=== PATIENT | female | born 1985 | race Caucasian/White ===

== ENCOUNTER 2017-04-08 12:56 | Emergency (ER) | payer OTHER ==
[~2017-04-08] VITALS: Ht 170.2 cm; Wt 94.8 kg
[~2017-04-08 12:56] MED LIST: IBUPROFEN 800800 MG PO; NORCO 5-325 TA1 EACH PO; NORFLEX100 MG PO; SERTRALINE HCL50 MG PO; SYNTHROID; XANAX 0.5 MG0.5 MG PO; ZOLOFT
[2017-04-08] MEDS ORDERED: EFFEXOR XR75 MG PO (13:12)
[2017-04-08] MEDS ORDERED: CLONAZEPAM 0.50.5 M1 PO (13:12)
[2017-04-08] MEDS ORDERED: CLEOCIN HCL150 MG PO (13:13)
[2017-04-08 14:33] LABS: ABSOLUTE BASOPHILS 0.1 thou/uL (0.0-0.2); ABSOLUTE EOSINOPHILS 0.3 thou/uL (0.0-0.7); ABSOLUTE LYMPHOCYTES 2.6 thou/uL (0.8-5.3); ABSOLUTE MONOCYTES 1.3 thou/uL (0.0-1.2); ABSOLUTE NEUTROPHILS 8.2 thou/uL (1.6-8.1); BASOPHILS 0.9 %; EOSINOPHILS 2.1 %; HEMATOCRIT 41.9 % (37.0-47.0); HEMOGLOBIN 14.4 gm/dL (12.0-15.0); LYMPHOCYTES 20.8 %; MCH 30.4 pg (26.0-34.0); MCHC 34.3 g/dL (28.0-37.0); MCV 88.7 fL (80.0-100.0); MONOCYTES 10.4 %; MPV 7.1 fl. (7.2-11.1); NUCLEATED RBCS 0 /100WBC; PLATELET COUNT* 384 thou/uL (150-400); POLYS 65.8 %; RBC 4.72 mil/uL (4.20-5.00); RDW-CV 12.9 % (10.5-14.5); WBC 12.5 thou/uL (4.0-11.0)
[2017-04-08 14:38] LABS: CALCIUM 9.3 mg/dL (8.5-10.1); CREATININE 0.6 mg/dL (0.6-1.3); POTASSIUM 4.1 mmol/L (3.5-5.1)
[2017-04-08 14:43] LABS: TOTAL BILIRUBIN 0.6 mg/dL (<0.1-1.0); TOTAL PROTEIN 8.6 g/dL (6.4-8.2)
[2017-04-08 17:25] VITALS: BP 125/75
== END 2017-04-08 17:32 | disposition short-term general hospital (02) ==
LOC: M.ERS 12:56
PROVIDERS: Physician Assistant
DX: K11.20 Sialoadenitis, unspecified (principal); R25.2 Cramp and spasm; F41.9 Anxiety disorder, unspecified; E03.9 Hypothyroidism, unspecified; E28.2 Polycystic ovarian syndrome; F17.210 Nicotine dependence, cigarettes, uncomplicated; Z88.0 Allergy status to penicillin

== ENCOUNTER 2019-12-28 18:34 | Emergency (ER) | payer OTHER ==
[~2019-12-28] VITALS: Ht 167.6 cm; Wt 90.7 kg
[~2019-12-28 18:34] MED LIST changes: +CLEOCIN HCL150 MG PO; +CLONAZEPAM 0.50.5 M1 PO; +EFFEXOR XR75 MG PO
[2019-12-28] MEDS ORDERED: CABERGOLINE 0.0.5 M1 PO (18:53)
[2019-12-28] MEDS ORDERED: [UNRECOGNIZED DRUG - OTHER] SUBQ (18:54)
[2019-12-28] MEDS ORDERED: LEXAPRO20 MG PO (18:54)
[2019-12-28] MEDS ORDERED: DORYX MPC120 MG PO (18:54)
[2019-12-28] MEDS ORDERED: ENBRACE HR SOF1 EACH PO (18:55)
[2019-12-28] MEDS ORDERED: LORCET 5-325 M1 EACH PO (18:55)
[2019-12-28 20:57] VITALS: BP 140/87
== END 2019-12-28 20:58 | disposition home or self-care (01) ==
LOC: M.ERS 18:34
DX: M79.661 Pain in right lower leg (principal); R25.2 Cramp and spasm; E03.9 Hypothyroidism, unspecified; F17.210 Nicotine dependence, cigarettes, uncomplicated; Z88.0 Allergy status to penicillin

== ENCOUNTER 2020-07-16 14:11 | Emergency (ER) | payer OTHER ==
[~2020-07-16] VITALS: Ht 170.2 cm; Wt 102.1 kg
[~2020-07-16 14:11] MED LIST changes: +CABERGOLINE 0.0.5 M1 PO; +DORYX MPC120 MG PO; +ENBRACE HR SOF1 EACH PO; +LEXAPRO20 MG PO; +LORCET 5-325 M1 EACH PO; +[UNRECOGNIZED DRUG - OTHER] SUBQ
[2020-07-16] MEDS ORDERED: ASA81BEC PO (14:26)
[2020-07-16] MEDS ORDERED: LEVO-T100 MCG PO (14:26)
[2020-07-16 14:50] VITALS: BP 146/104
[2020-07-16] MEDS ORDERED: PREDNISONE 20 M20 MG PO ×2 (14:52→14:53)
[2020-07-16] MEDS ORDERED: CIPROFLOXIN HC2.5 M1 OPHTHALMIC ×2 (14:52→14:53)
== END 2020-07-16 14:50 | disposition home or self-care (01) ==
LOC: M.ERS 14:11
DX: H10.11 Acute atopic conjunctivitis, right eye (principal); R60.0 Localized edema; E03.9 Hypothyroidism, unspecified; F17.210 Nicotine dependence, cigarettes, uncomplicated; Z79.899 Other long term (current) drug therapy; Z88.0 Allergy status to penicillin

== ENCOUNTER 2020-10-16 00:15 | Emergency (ER) | payer OTHER ==
[~2020-10-16] VITALS: Ht 170.2 cm; Wt 100.2 kg
[~2020-10-16 00:15] MED LIST changes: +ASA81BEC PO; +CIPROFLOXIN HC2.5 M1 OPHTHALMIC; +LEVO-T100 MCG PO; +PREDNISONE 20 M20 MG PO
[2020-10-16 00:33] VITALS: BP 148/77
[2020-10-16] MEDS ORDERED: SYNTHROID150 MCG PO (00:39)
[2020-10-16 00:49] LABS: URINE BILIRUBIN NEGATIVE (Negative); URINE BLOOD 2+ (Negative); URINE COLOR STRAW; URINE GLUCOSE-RANDOM NEGATIVE (Negative); URINE KETONES NEGATIVE (Negative); URINE NITRITE-REFLEX NEGATIVE (Negative); URINE PROTEIN TRACE (Negative); URINE SPECIFIC GRAVITY <= 1.005 (1.005-1.030); URINE UROBILINOGEN 0.2 E.U./dl (0.2-1.0)
[2020-10-16 00:50] LABS: URINE CLARITY SL HAZY; URINE LEUKOCYTES-REFLEX 2+ (Negative)
[2020-10-16 01:01] LABS: SQUAMOUS 0-3 Few /LPF (0-3)
[2020-10-16 01:02] LABS: BACTERIA-REFLEX >30 Many /HPF (None Seen); CASTS None Seen /LPF (None Seen); CRYSTALS None Seen /LPF (None Seen); MUCUS 0-3 Light strn/LPF (None Seen); URINE WBC-REFLEX >25 Many /HPF (0-5); WBC CLUMPS Moderate (None Seen)
[2020-10-16] MEDS ORDERED: BACTRIM DS TAB1 EACH PO (01:23)
== END 2020-10-16 01:26 | disposition home or self-care (01) ==
LOC: M.ERS 00:15
PROVIDERS: Emergency Medicine
DX: N39.0 Urinary tract infection, site not specified (principal); F41.9 Anxiety disorder, unspecified; E05.90 Thyrotoxicosis, unspecified without thyrotoxic crisis or storm; F17.210 Nicotine dependence, cigarettes, uncomplicated; Z87.42 Personal history of other diseases of the female genital tract; Z79.899 Other long term (current) drug therapy; Z88.0 Allergy status to penicillin

== ENCOUNTER 2020-11-19 14:04 | Emergency (ER) | payer OTHER ==
[~2020-11-19] VITALS: Ht 170.2 cm; Wt 98.0 kg
[~2020-11-19 14:04] MED LIST changes: +BACTRIM DS TAB1 EACH PO
[2020-11-19 14:31] LABS: URINE BILIRUBIN NEGATIVE (Negative); URINE BLOOD NEGATIVE (Negative); URINE CLARITY CLEAR; URINE COLOR YELLOW; URINE GLUCOSE-RANDOM NEGATIVE (Negative); URINE KETONES NEGATIVE (Negative); URINE LEUKOCYTES-REFLEX NEGATIVE (Negative); URINE NITRITE-REFLEX NEGATIVE (Negative); URINE PROTEIN NEGATIVE (Negative); URINE SPECIFIC GRAVITY <= 1.005 (1.005-1.030); URINE UROBILINOGEN 0.2 E.U./dl (0.2-1.0)
[2020-11-19 14:34] LABS: ABSOLUTE BASOPHILS 0.1 thou/uL (0.0-0.2); ABSOLUTE EOSINOPHILS 0.5 thou/uL (0.0-0.7); ABSOLUTE LYMPHOCYTES 3.7 thou/uL (0.8-5.3); ABSOLUTE MONOCYTES 0.8 thou/uL (0.0-1.2); ABSOLUTE NEUTROPHILS 6.6 thou/uL (1.6-8.1); BASOPHILS 1.2 %; EOSINOPHILS 4.6 %; HEMATOCRIT 41.8 % (37.0-47.0); HEMOGLOBIN 14.5 gm/dL (12.0-15.0); LYMPHOCYTES 31.6 %; MCH 30.2 pg (26.0-34.0); MCHC 34.7 g/dL (28.0-37.0); MCV 87.3 fL (80.0-100.0); MONOCYTES 6.7 %; MPV 6.5 fl. (7.2-11.1); NUCLEATED RBCS 0 /100WBC; PLATELET COUNT* 470 thou/uL (150-400); POLYS 55.9 %; RBC 4.79 mil/uL (4.20-5.00); RDW-CV 13.1 % (10.5-14.5); WBC 11.7 thou/uL (4.0-11.0)
[2020-11-19 14:45] LABS: CALCIUM 9.1 mg/dL (8.5-10.1); CREATININE 0.7 mg/dL (0.6-1.3); POTASSIUM 3.8 mmol/L (3.5-5.1)
[2020-11-19] MEDS ORDERED: SYNTHROID150 MCG PO (14:45)
[2020-11-19 14:49] LABS: ALBUMIN 4.6 g/dL (3.4-5.0); TOTAL BILIRUBIN 0.2 mg/dL (<0.1-1.0)
[2020-11-19] MEDS ORDERED: IBUPROFEN 800800 M1 PO (16:50)
[2020-11-19] MEDS ORDERED: HYDROCODON-ACE1 EAC7 PO (16:50)
[2020-11-19 17:01] VITALS: BP 141/70
== END 2020-11-19 17:02 | disposition home or self-care (01) ==
LOC: M.ERS 14:04
PROVIDERS: Emergency Medicine Emergency Medical Services
DX: R10.31 Right lower quadrant pain (principal); R20.8 Other disturbances of skin sensation; R50.9 Fever, unspecified; F41.9 Anxiety disorder, unspecified; E05.90 Thyrotoxicosis, unspecified without thyrotoxic crisis or storm; F17.210 Nicotine dependence, cigarettes, uncomplicated; Z79.899 Other long term (current) drug therapy; Z87.42 Personal history of other diseases of the female genital tract; Z88.0 Allergy status to penicillin

== ENCOUNTER 2020-12-27 12:22 | Emergency (ER) | payer OTHER ==
[~2020-12-27] VITALS: Ht 170.2 cm; Wt 98.9 kg
[~2020-12-27 12:22] MED LIST changes: +HYDROCODON-ACE1 EAC7 PO; +IBUPROFEN 800800 M1 PO; +SYNTHROID150 MCG PO
[2020-12-27 14:12] LABS: INFLUENZA A ANTIGEN Negative (Negative); INFLUENZA B ANTIGEN Negative (Negative)
[2020-12-27 14:21] VITALS: BP 134/72
== END 2020-12-27 14:22 | disposition home or self-care (01) ==
LOC: M.ERS 12:22
PROVIDERS: Nurse Practitioner Psychiatric/Mental Health
DX: J06.9 Acute upper respiratory infection, unspecified (principal); Z20.822 Contact with and (suspected) exposure to COVID-19; F41.9 Anxiety disorder, unspecified; F32.9 Major depressive disorder, single episode, unspecified; F17.210 Nicotine dependence, cigarettes, uncomplicated; Z87.42 Personal history of other diseases of the female genital tract; Z79.899 Other long term (current) drug therapy; Z88.0 Allergy status to penicillin